=== PATIENT | female | born 1995 ===

== ENCOUNTER 2018-04-22 07:06 | Emergency (ER) | payer SELFPAY ==
[2018-04-22 07:18] VITALS: BMI 36.8
[2018-04-22 07:54] LABS: HCG,QUALITATIVE URINE NEGATIVE (NEGATIVE)
[2018-04-22 08:08] LABS: SQUAMOUS EPITHIAL 3 /hpf (0-5); URINE BACTERIA MANY (<OCC); URINE BILIRUBIN NEGATIVE (NEGATIVE); URINE BLOOD NEGATIVE (NEGATIVE); URINE CLARITY Clear (Clear); URINE COLOR Yellow (YELLOW); URINE GLUCOSE (UA) NORMAL (Normal); URINE LEUKOCYTE ESTERASE 1+ Leu/uL (Negative); URINE PROTEIN NEGATIVE (NEGATIVE); URINE UROBILINOGEN NORMAL mg/dL (0.2-1.0)
--- NOTE | 2018-04-22 08:27 | C.PDOC ---
History Of Present Illness 22 y/o female with history of Chlamydia and HPV presents to ED requesting for IUD to be removed secondary to bladder infection. Patient c/o dysuria and urinary frequency for 1 week and thinks she has a UTI because of IUD. Patient states she went to [facility] to be treated for bladder infection secondary to insurance issues here and was advised by OBGYN to have IUD removed. Patient denies fever, chills, abdominal pain, nausea, vomiting, back pain or any other complaints at this time. Time Seen by Provider: 04/22/18 07:28 Chief Complaint (Nursing): Female Genitourinary History Per: Patient History/Exam Limitations: no limitations Onset/Duration Of Symptoms: Days Current Symptoms Are (Timing): Still Present Past Medical History Reviewed: Historical Data, Nursing Documentation, Vital Signs Vital Signs: Last Vital Signs Temp 98.8 F 04/22/18 07:18 Pulse 93 H 04/22/18 07:18 Resp 20 04/22/18 07:18 BP 118/82 04/22/18 07:18 Pulse Ox 100 04/22/18 07:18 - Medical History PMH: No Chronic Diseases Surgical History: No Surg Hx Family History: States: No Known Family Hx - Social History Hx Alcohol Use: No Hx Substance Use: No - Immunization History Hx Tetanus Toxoid Vaccination: No Hx Influenza Vaccination: No Hx Pneumococcal Vaccination: No Review Of Systems Constitutional: Negative for: Fever, Chills Gastrointestinal: Negative for: Nausea, Vomiting, Abdominal Pain Genitourinary: Positive for: Dysuria, Frequency. Negative for: Vaginal Bleeding Musculoskeletal: Negative for: Back Pain Skin: Negative for: Rash Physical Exam - Physical Exam Appears: Non-toxic, No Acute Distress Skin: Warm, Dry, No Rash Head: Atraumatic, Normacephalic Eye(s): bilateral: Normal Inspection Oral Mucosa: Moist Throat: No Erythema, No Exudate Neck: Normal ROM, Supple Chest: Symmetrical, No Tenderness Cardiovascular: Rhythm Regular Respiratory: Normal Breath Sounds, No Rales, No Rhonchi, No Wheezing Gastrointestinal/Abdominal: Soft, No Tenderness, No Guarding, No Rebound Back: Normal Inspection, No CVA Tenderness Pelvic: Normal External Exam, No Vaginal Bleeding, Vaginal Discharge, No Cervical Motion Tenderness, No Cervix Open, Other (O[employer] Heater: [place] [employer]) Neurological/Psych: Oriented x3, Normal Speech, Normal Cognition, Normal Motor Gait: Steady ED Course And Treatment O2 Sat by Pulse Oximetry: 100 (RA) Pulse Ox Interpretation: Normal Medical Decision Making Medical Decision Making: Plan: Cipro, Flagyl administered. Urine Culture sent Disposition - Disposition Referrals: Mark Winters MD [Staff Provider] - [facility] [Outside] Disposition: HOME/ ROUTINE Disposition Time: 09:11 Condition: STABLE Additional Instructions: Follow up with the medical doctor within 1-2 days. Return if worsened. Prescriptions: Ciprofloxacin [Cipro] 1 tab PO BID #10 tab Fluconazole [Diflucan] 150 mg PO ONCE #2 tab metroNIDAZOLE [Flagyl] 500 mg PO BID #14 tab Instructions: Bacterial Vaginosis (DC), Urinary Tract Infection, Adult (DC) Forms: Work/School/Gym Excuse, [facility] (Bahraini) - Clinical Impression Clinical Impression: Bacterial vaginosis, UTI (urinary tract infection) - PA / COMPOSITE SCIENCE TEACHER / Resident Statement MD/DO has reviewed & agrees with the documentation as recorded. - Scribe Statement The provider has reviewed the documentation as recorded by the Scribraya Sharif All medical record entries made by the Senia were at my direction and personally dictated by me. I have reviewed the chart and agree that the record accurately reflects my personal performance of the history, physical exam, medical decision making, and the department course for this patient. I have also personally directed, reviewed, and agree with the discharge instructions and disposition.
[2018-04-22 09:09] VITALS: BP 169/79; PULSE 69; RESP 18; TEMP 98
[2018-04-22 09:14] VITALS: O2SAT 100
== END 2018-04-22 09:38 | disposition home or self-care (01) ==
LOC: C.ER 07:06
DX: N39.0 Urinary tract infection, site not specified (principal); N76.0 Acute vaginitis

== ENCOUNTER 2018-05-28 07:52 | Emergency (ER) | payer MEDICAID, OTHER ==
[2018-05-28 07:52] VITALS: BMI 36.8
[2018-05-28 07:59] VITALS: RESP 18
--- NOTE | 2018-05-28 08:02 | C.PDOC ---
History Of Present Illness 22 y/o female presents to ED with c/o fever intermittently for 2 weeks, associated with productive cough, nausea, vomiting, diarrhea, myalgias. Patient states she saw PMD 2 days ago and was negative for flu and strep, basic bloodwork showed elevated liver enzymes. Patient states symptoms have persisted prompting visit to ED. Denies chest pain, SOB, abdominal pain, blood in stool, blood in emesis, or any other complaints at this time. LMP unknown secondary to IUD removed on 05/08/18. PMD: Dr. Raines Time Seen by Provider: 05/28/18 08:02 Chief Complaint (Nursing): Fever History Per: Patient History/Exam Limitations: no limitations Onset/Duration Of Symptoms: Days Current Symptoms Are (Timing): Still Present Associated Symptoms: Fever, Cough, Myalgias, Nausea, Vomiting, Diarrhea Past Medical History Reviewed: Historical Data, Nursing Documentation, Vital Signs Vital Signs: Last Vital Signs Temp 101.4 F H 05/28/18 07:55 Pulse 133 H 05/28/18 07:55 Resp 18 05/28/18 07:55 BP 117/80 05/28/18 07:55 Pulse Ox 99 05/28/18 07:55 Temp Pulse Resp BP Pulse Ox 99.2 F 88 18 110/78 99 05/28/18 10:59 05/28/18 12:09 05/28/18 12:09 05/28/18 12:09 05/29/18 01:15 - Medical History PMH: No Chronic Diseases Surgical History: No Surg Hx Family History: States: No Known Family Hx - Social History Hx Alcohol Use: No Hx Substance Use: No - Immunization History Hx Tetanus Toxoid Vaccination: No Hx Influenza Vaccination: No Hx Pneumococcal Vaccination: No Review Of Systems Except As Marked, All Systems Reviewed And Found Negative. Constitutional: Positive for: Fever, Malaise. Negative for: Chills Eyes: Negative for: Vision Change ENT: Positive for: Throat Pain. Negative for: Ear Pain, Nose Pain, Throat Swelling Cardiovascular: Negative for: Chest Pain, Palpitations, Light Headedness Respiratory: Positive for: Cough. Negative for: Shortness of Breath, Hemoptysis Gastrointestinal: Positive for: Nausea, Vomiting, Abdominal Pain, Diarrhea Genitourinary: Positive for: Dysuria. Negative for: Frequency, Vaginal Discharge, Vaginal Bleeding Musculoskeletal: Negative for: Neck Pain, Back Pain Skin: Negative for: Rash Neurological: Negative for: Weakness, Numbness, Confusion, Headache, Dizziness Physical Exam - Physical Exam Appears: Well, Non-toxic, No Acute Distress Skin: Normal Color, Warm, Dry, No Rash Head: Atraumatic, Normacephalic Eye(s): bilateral: Normal Inspection, PERRL, EOMI Ear(s): Bilateral: Normal Nose: Normal Oral Mucosa: Moist Throat: Erythema, No Exudate, No Drooling, Other (No uvula deviation) Neck: Normal ROM, No Decreased ROM, No Midline Cervical Tenderness, No Paracervical Tenderness, Supple, No Other (meningeal signs) Lymphatic: Normal Exam Cardiovascular: Rhythm Regular, No Other Respiratory: Normal Breath Sounds, No Rales, No Rhonchi, No Wheezing Gastrointestinal/Abdominal: Normal Exam, Bowel Sounds (normal), Soft, No Tenderness, No Organomegaly, No Mass, No Distention, No Guarding, No Rebound Back: Normal Inspection, No CVA Tenderness Extremity: Normal ROM Extremity: Bilateral: Atraumatic, No Pedal Edema, Normal Color And Temperature, Normal ROM Pulses: Left Radial: Normal, Right Radial: Normal (HR 90 on exam by right radial pulse.) Neurological/Psych: Oriented x3, Normal Speech, Normal Cognition, Normal Motor, Normal Sensation Gait: Steady ED Course And Treatment - Laboratory Results Result Diagrams: 05/28/18 09:45 05/28/18 09:45 O2 Sat by Pulse Oximetry: 99 (RA) Pulse Ox Interpretation: Normal - Physician Consult Information Time Consulting Physician Contacted: 12:00 Physician Contacted: Migue Raines Outcome Of Conversation: Recommends patient discharge with Levaquin and recommendation to followup with his office tomorrow. Medical Decision Making Medical Decision Making: Plan: * CBC, CMP * CXR * UA * Rapid Flu, Strep, [place] * Zofran * Tylenol * IVF On initial exam, patient very well-appearing, resting comfortably on stretcher in no acute distress, speaking in full sentences. 11:30 On re-evaluation, patient continues to appear well and is in no acute distress, resting comfortably. States she feels much better after fluid infusion and is ready to go home. States she will followup with Dr. Raines within the next 2 days and return for any new/worsening symptoms. Advised to increase potassium in diet for level of 3.4 Case and diagnostic testing results discussed in depth with ED attending Dr. Souza, who agrees with patient plan of care and disposition. No episodes of vomiting or diarrhea in the ED. 12:00 Case and diagnostic testing results discussed in depth with patient's PMD Dr. Raines, who recommends discharge with followup within 2 days in his office. Recommends Levaquin x 7 days for urine infection. Recommend no strenuous activity, heavy lifting, or contact sports. 12:30 Plan of care discussed with patient, and strict instructions given regarding prescriptions, importance of follow up, and signs to return to Emergency Department, to include abdominal pain, intractable vomiting, neck pain, worsening headache, or any other new/worsening symptoms. Patient verbalizes understanding of discussion. Patient A&Ox3, ambulating with steady gait, stable for discharge home. Disposition - Disposition Disposition: HOME/ ROUTINE Disposition Time: 12:30 Condition: IMPROVED Additional Instructions: Take levaquin once daily for 7 days Tylenol/Ibuprofen for pain and fever No strenuous activity or contact sports Increase fluids Followup with PMD within 2 days Return to ER for any new/worsening symptoms Prescriptions: levoFLOXacin [Levaquin] 750 mg PO DAILY 7 Days #7 tab Instructions: Urinary Tract Infections in Adults, Mononucleosis (DC) Forms: [facility] (Czech), Work Excuse - Clinical Impression Clinical Impression: Mononucleosis, UTI (urinary tract infection) - PA / GLASS CARRIER / Resident Statement MD/DO has reviewed & agrees with the documentation as recorded. - Scribe Statement The provider has reviewed the documentation as recorded by the Senia Sharif All medical record entries made by the Senia were at my direction and personally dictated by me. I have reviewed the chart and agree that the record accurately reflects my personal performance of the history, physical exam, medical decision making, and the department course for this patient. I have also personally directed, reviewed, and agree with the discharge instructions and disposition.
[2018-05-28] MEDS ORDERED: Sodium Chloride 0.9% 1,000 ML IV ONE (08:26)
[2018-05-28 09:59] LABS: BASO % 0.5 % (0.0-2.0); EOS % 0.1 % (0.0-4.0); HEMOGLOBIN 12.2 g/dL (11.0-16.0); LYMPH % 60.6 % (20.0-40.0); MEAN CELL VOLUME 73.8 fL (81.0-99.0); MEAN CORPUSCULAR HEMOGLOBIN 24.6 pg (27.0-31.0); MEAN CORPUSCULAR HGB CONC 33.3 g/dL (33.0-37.0); MEAN PLATELET VOLUME 9.9 fL (7.2-11.7); MONO # 0.6 K/uL (0.0-0.8); MONO % 9.5 % (0.0-10.0); NEUT % 29.3 % (50.0-75.0); NRBC % 0.2 % (0.0-2.0); RBC 4.98 Mil/uL (3.80-5.20); RED CELL DISTRIBUTION WIDTH 15.5 % (11.5-14.5); WHITE BLOOD COUNT 6.7 K/uL (4.8-10.8)
[2018-05-28 10:24] LABS: ALB/GLOB RATIO 1.2 (1.0-2.1); ALBUMIN 3.7 g/dL (3.5-5.0); ALT/SGPT 101 U/L (9-52); AST/SGOT 104 U/L (14-36); BLOOD UREA NITROGEN 10 mg/dL (7-17); CALCIUM 8.4 mg/dl (8.6-10.4); GFR NON-AFRICAN AMERICAN > 60; LIPASE 79 U/L (23-300)
[2018-05-28 10:59] VITALS: TEMP 99.2
[2018-05-28 11:21] LABS: SQUAMOUS EPITHIAL 9 /hpf (0-5); URINE AMORPHOUS SEDIMENT RARE /ul (<OCC); URINE BACTERIA OCC (<OCC); URINE BILIRUBIN NEGATIVE (NEGATIVE); URINE BLOOD NEGATIVE (NEGATIVE); URINE CLARITY Hazy (Clear); URINE COLOR Amber (YELLOW); URINE GLUCOSE (UA) NORMAL (Normal); URINE HYALINE CAST 0-2 /lpf (0-2); URINE LEUKOCYTE ESTERASE 1+ Leu/uL (Negative); URINE PROTEIN 1+ mg/dL (NEGATIVE)
--- NOTE | 2018-05-28 12:04 | RAD ---
Date of service: 05/28/2018 HISTORY: r/o PNA COMPARISON: No prior. TECHNIQUE: Chest PA and lateral FINDINGS: LUNGS: Poor inspiration with low lung volumes, crowded bronchovascular markings and mild bibasilar atelectasis.. PLEURA: No significant pleural effusion identified. No pneumothorax apparent. CARDIOVASCULAR: No aortic atherosclerotic calcification present. Normal cardiac size. No pulmonary vascular congestion. OSSEOUS STRUCTURES: No significant abnormalities. VISUALIZED UPPER ABDOMEN: Normal. OTHER FINDINGS: None. IMPRESSION: Poor inspiration with low lung volumes, crowded bronchovascular markings and mild bibasilar atelectasis
[2018-05-28 12:11] VITALS: BP 110/78; PULSE 88
[2018-05-29 00:43] VITALS: O2SAT 99
== END 2018-05-28 12:55 | disposition home or self-care (01) ==
LOC: C.ER 07:52
DX: N39.0 Urinary tract infection, site not specified (principal); B27.90 Infectious mononucleosis, unspecified without complication
CPT/HCPCS: 71046; 80053; 81001; 83690; 85025; 86308; 87070; 87086; 87430; 87804; 96361; 96374; 99285; J2405; J7030